=== PATIENT | female | born 1985 | race Caucasian/White ===

== ENCOUNTER 2022-11-05 19:39 | Emergency (ER) | payer MEDICAID ==
[~2022-11-05] VITALS: Ht 165.1 cm; Wt 84.4 kg
[2022-11-05] MEDS ORDERED: LOSA1TAB36 PO (21:26)
[2022-11-05] MEDS ORDERED: AMLO-212 PO (21:26)
--- NOTE | 2022-11-05 21:26 | NUR ---
After being triaged, patient was placed back in the waiting room due to no beds available in the ER.
--- NOTE | 2022-11-05 22:33 | NUR ---
Patient placed in room 4A at this time.
[2022-11-05 23:18] LABS: MEAN CORPUSCULAR HEMOGLOBIN 26.5 uug (24.7-32.8); PLATELET COUNT (AUTO) 319 K/uL (179-408)
[2022-11-05 23:28] LABS: CARBON DIOXIDE 27 mmol/L (21-32); CHLORIDE 103 mmol/L (98-107); CREATININE 0.7 mg/dL (0.6-1.3); GLUCOSE 105 mg/dL (74-106); POTASSIUM 3.9 mmol/L (3.5-5.1); UREA NITROGEN, BLOOD 14 mg/dL (7-18)
[2022-11-05 23:36] LABS: ALANINE AMINOTRANSFERASE 29 U/L (14-59); ALKALINE PHOSPHATASE 88 U/L (50-136); ASPARTATE AMINOTRANSFERASE 19 U/L (15-37); BILIRUBIN,DIRECT 0.1 mg/dL (0.0-0.2); BILIRUBIN,TOTAL 0.1 mg/dL (0.2-1.0); TOTAL PROTEIN, SERUM 8.2 g/dL (6.4-8.2)
[2022-11-06] MEDS ORDERED: CLON0.1T PO (00:22)
--- NOTE | 2022-11-06 00:38 | NUR ---
Patient discharged to home in stable condition. Written and verbal after care instructions given. Patient verbalizes understanding of instructions. Stressed follow up or return to ER for worsening s/s.
[2022-11-06 00:39] VITALS: BP 115/75
== END 2022-11-06 00:40 | disposition home or self-care (01) ==
LOC: ER 19:50
DX: I10 Essential (primary) hypertension (principal); E88.81 Metabolic syndrome and other insulin resistance; E66.9 Obesity, unspecified; Z68.31 Body mass index [BMI] 31.0-31.9, adult
CPT/HCPCS: 36415; 71045; 83735; 84484; 85025; 93005; A4663